=== PATIENT | male | born 1940 | race Caucasian/White ===

== ENCOUNTER 2016-05-08 07:02 | Observation (INO) | payer MEDICARE ==
[~2016-05-08] VITALS: Ht 175.3 cm; Wt 116.6 kg
[~2016-05-08 07:02] MED LIST: AZOR; CITALOPRAM; MECLIZINE
[2016-05-08] MEDS ORDERED: SODIUM CHLORIDE 0.9% 1,000 ML IV ONE (07:32)
[2016-05-08] MEDS ORDERED: MORPHINE SULFATE 4 MG/ML CPJ (NOT FOR IM USE) IV STA (07:32)
[2016-05-08] MEDS ORDERED: ONDANSETRON HCL 4MG/2ML VIAL IV STA (07:32)
[2016-05-08] MEDS ORDERED: FAMOTIDINE 20MG/2ML VIAL IV STA (07:32)
[2016-05-08 07:53] LABS: BASOPHILS % 0.6 % (0.0-2.0); EOSINOPHILS % 5.3 % (0.0-5.0); HEMATOCRIT. 50.4 % (42.0-52.0); LYMPHOCYTES % 19.5 % (20.0-50.0); MEAN CORPUSCULAR HEMOGLOBIN 29.2 pg (28.0-32.0); MEAN CORPUSCULAR HGB CONC 33.8 g/dL (31.0-37.0); MEAN CORPUSCULAR VOLUME 86.3 fL (80.0-94.0); MEAN PLATELET VOLUME 8.5 fl (7.4-10.4); MONOCYTES % 12.2 % (2.0-8.0); NEUTROPHILS % 62.4 % (40.0-76.0); PLATELET 250 x1000/uL (130-400); RED BLOOD CELL COUNT 5.84 mill/uL (4.7-6.1); RED CELL DISTRIBUTION WIDTH 13.6 % (11.6-14.6); WHITE BLOOD COUNT 8.9 x1000/uL (4.5-11.0)
[2016-05-08 08:04] LABS: ALBUMIN 3.3 g/dL (3.4-5.0); ANION GAP 11; CALCIUM 8.8 mg/dL (8.5-10.1); CARBON DIOXIDE 31 mEq/L (21-32); CHLORIDE 100 mEq/L (98-107); INDEX HEMOLYSI 1 (1-3); INDEX ICTERIC 1 (1-4); INDEX LIPEMIC 1 (1-3); LIPASE 213 IU/L (73-393); UREA NITROGEN BLOOD 18 mg/dL (7-21)
[2016-05-08 08:10] LABS: INR 1.5; PROTHROMBIN TIME 16.2 sec
[2016-05-08 08:11] LABS: ALANINE AMINOTRANSFERASE 19 IU/L (13-61); TROPONIN I < 0.02 ng/mL (0.00-0.04); eGFR > 60 mL/min (>60)
[2016-05-08 08:26] LABS: CLARITY URINE CLEAR (CLEAR); COLOR URINE YELLOW (YELLOW); GLUCOSE URINE NEGATIVE (NEGATIVE); KETONES URINE NEGATIVE (NEGATIVE); LEUKOCYTE ESTERASE URINE NEGATIVE (NEGATIVE); NITRITE URINE NEGATIVE (NEGATIVE); OCCULT BLOOD URINE NEGATIVE (NEGATIVE); PROTEIN URINE NEGATIVE (NEGATIVE); SPECIFIC GRAVITY URINE 1.019 (1.005-1.030)
[2016-05-08] MEDS ORDERED: PIPERACILLIN/TAZ 3.375G PREMIX 50 ML IV ONE (09:30)
[2016-05-08] MEDS ORDERED: CLONIDINE 0.1MG TABLET PO PRN (10:15)
[2016-05-08] MEDS ORDERED: ONDANSETRON HCL 4MG/2ML VIAL IV PRN (10:15)
[2016-05-08] MEDS ORDERED: MORPHINE SULFATE 2 MG/ML CPJ (NOT FOR IM USE) IV PRN (10:15)
[2016-05-08] MEDS ORDERED: MORPHINE SULFATE 4 MG/ML CPJ (NOT FOR IM USE) IV PRN (10:15)
[2016-05-08 11:40] VITALS: BP 135/88
[2016-05-08] MEDS ORDERED: RIVA20TA PO (11:47)
[2016-05-08 12:00] VITALS: BP 135/88
[2016-05-08] MEDS ORDERED: DICY20TA11 PO (12:03)
[2016-05-08] MEDS ORDERED: DILT240C3 PO (12:03)
[2016-05-08] MEDS ORDERED: CHLO25TA27 PO (12:03)
[2016-05-08] MEDS ORDERED: IRBE300T18 PO (12:03)
[2016-05-08] MEDS ORDERED: METO-300 PO (12:03)
[2016-05-08] MEDS ORDERED: BRIM5DRO EACHEYE (12:03)
[2016-05-08] MEDS ORDERED: PRED5DRO7 LEFTEYE (12:03)
[2016-05-08] MEDS ORDERED: LANS30CA55 PO (12:03)
[2016-05-08] MEDS ORDERED: DORZ10DR9 RIGHTEYE (12:03)
[2016-05-08] MEDS: DILTIAZEM HCL 240MG ER (24HR) PO SCH (14:10)
[2016-05-08 16:00] VITALS: BP 116/71
[2016-05-08] MEDS ORDERED: RIVAROXABAN 20 MG TABLET PO SCH (17:00)
[2016-05-08] MEDS: SODIUM CHLORIDE 0.9% 1,000 ML IV SCH (17:47)
[2016-05-08] MEDS: ALPHAGAN 0.1% RIGHTEYE SCH (18:34)
[2016-05-08] MEDS: PREDNISOLONE 1% LEFTEYE SCH (18:34)
[2016-05-08] MEDS: DORZOLAMIDE RIGHTEYE SCH (18:35)
[2016-05-08] MEDS: TIMOLOL OPTHALMIC RIGHTEYE SCH (18:35)
[2016-05-08 20:00] VITALS: BP 105/69
[2016-05-08] MEDS ORDERED: PREDNISOLONE ACETATE 1% OPHTH DROPS 1ML LEFTEYE SCH (20:00)
[2016-05-08] MEDS ORDERED: DORZOLAM/TIMOLOL 2.23/0.68% OPHTH DROPS 10ML RIGHTEYE SCH (20:00)
[2016-05-08] MEDS ORDERED: TIMOLOL OPTHALMIC RIGHTEYE SCH (21:00)
[2016-05-08] MEDS ORDERED: DORZOLAMIDE RIGHTEYE SCH (21:00)
[2016-05-08] MEDS: FAMOTIDINE 20MG TABLET PO SCH (21:00)
[2016-05-08] MEDS ORDERED: FAMOTIDINE 20MG/2ML VIAL IV SCH (21:00)
[2016-05-09] VITALS: BP 108/69
[2016-05-09 04:00] VITALS: BP 115/82
[2016-05-09] MEDS: ALPHAGAN 0.1% RIGHTEYE SCH ×2 (06:14→13:30)
[2016-05-09] MEDS: PREDNISOLONE 1% LEFTEYE SCH (06:23)
[2016-05-09] MEDS: TIMOLOL OPTHALMIC RIGHTEYE SCH (06:35)
[2016-05-09] MEDS: DORZOLAMIDE RIGHTEYE SCH (06:35)
[2016-05-09 06:42] LABS: BASOPHILS % 0.8 % (0.0-2.0); EOSINOPHILS % 4.7 % (0.0-5.0); HEMATOCRIT. 47.5 % (42.0-52.0); HEMOGLOBIN. 16.1 g/dL (14.0-18.0); LYMPHOCYTES % 26.6 % (20.0-50.0); MEAN CORPUSCULAR HEMOGLOBIN 29.3 pg (28.0-32.0); MEAN CORPUSCULAR HGB CONC 33.8 g/dL (31.0-37.0); MEAN CORPUSCULAR VOLUME 86.5 fL (80.0-94.0); MEAN PLATELET VOLUME 8.9 fl (7.4-10.4); MONOCYTES % 11.3 % (2.0-8.0); NEUTROPHILS % 56.6 % (40.0-76.0); PLATELET 228 x1000/uL (130-400); RED BLOOD CELL COUNT 5.49 mill/uL (4.7-6.1); RED CELL DISTRIBUTION WIDTH 13.4 % (11.6-14.6); WHITE BLOOD COUNT 8.3 x1000/uL (4.5-11.0)
[2016-05-09 06:44] LABS: CHLORIDE 101 mEq/L (98-107); INDEX HEMOLYSI 2 (1-3); INDEX ICTERIC 1 (1-4); INDEX LIPEMIC 1 (1-3)
[2016-05-09 06:52] LABS: ALANINE AMINOTRANSFERASE 19 IU/L (13-61); ALBUMIN 2.9 g/dL (3.4-5.0); ANION GAP 12; CALCIUM 8.3 mg/dL (8.5-10.1); CARBON DIOXIDE 29 mEq/L (21-32); LIPASE 192 IU/L (73-393); UREA NITROGEN BLOOD 15 mg/dL (7-21); eGFR > 60 mL/min (>60)
[2016-05-09] MEDS: SODIUM CHLORIDE 0.9% 1,000 ML IV SCH (07:03)
[2016-05-09] MEDS: FAMOTIDINE 20MG TABLET PO SCH (07:39)
[2016-05-09 08:00] VITALS: BP 140/99
[2016-05-09] MEDS ORDERED: METOPROLOL TARTRATE 100MG TABLET PO SCH (09:00)
[2016-05-09] MEDS ORDERED: DILTIAZEM HCL 240MG ER (24HR) PO SCH (09:00)
[2016-05-09] MEDS: DILTIAZEM HCL 240MG ER (24HR) PO SCH (09:33)
[2016-05-09 12:00] VITALS: BP 139/89
[2016-05-09] MEDS ORDERED: RIVAROXABAN 20 MG TABLET PO SCH (17:00)
== END 2016-05-09 14:43 | disposition home or self-care (01) ==
LOC: ER 07:17 → INTOOBSV 09:02 → 6EST 09:02
PROVIDERS: ADMIT Internal Medicine Critical Care Medicine; ATTEND Internal Medicine Critical Care Medicine
DX: K80.64 Calculus of gallbladder and bile duct with chronic cholecystitis without obstruction (principal); I10 Essential (primary) hypertension; I48.2 Chronic atrial fibrillation; H40.9 Unspecified glaucoma; H54.8 Legal blindness, as defined in USA; K76.89 Other specified diseases of liver; N28.1 Cyst of kidney, acquired; Z96.1 Presence of intraocular lens; Z98.890 Other specified postprocedural states
CPT/HCPCS: 36415; 71010; 76705; 80053; 81003; 83605; 83690; 84484; 85025; 85610; 93005; 96361; 96365; 96375; 99285; G0378; J2270; J2405; J2543; J3490; J7030

== ENCOUNTER 2017-09-21 05:03 | Emergency (ER) | payer MEDICARE, OTHER ==
[~2017-09-21] VITALS: Ht 175.3 cm; Wt 116.0 kg
[~2017-09-21 05:03] MED LIST changes: -AZOR; +BRIM5DRO EACHEYE; -CITALOPRAM; +DILT240C3 PO; +DORZ10DR9 RIGHTEYE; +LANS30CA55 PO; -MECLIZINE; +METO-411 PO; +PRED5DRO7 LEFTEYE; +RIVA20TA PO
[2017-09-21] MEDS ORDERED: SODIUM CHLORIDE 0.9% 1,000 ML IV ONE (06:39)
[2017-09-21] MEDS ORDERED: KETOROLAC 30MG/ML VIAL IV STA (06:39)
[2017-09-21] MEDS ORDERED: MAGNESIUM/ALUMINUM HYDROXIDE/SIMETHICONE 30ML UDC PO STA (06:39)
[2017-09-21 08:01] LABS: BASOPHILS % 0.4 % (0.0-2.0); EOSINOPHILS % 5.5 % (0.0-5.0); HEMOGLOBIN. 15.8 g/dL (14.0-18.0); LYMPHOCYTES % 18.7 % (20.0-50.0); MEAN CORPUSCULAR HEMOGLOBIN 29.2 pg (28.0-32.0); MEAN CORPUSCULAR VOLUME 84.9 fL (80.0-94.0); MEAN PLATELET VOLUME 8.4 fl (7.4-10.4); MONOCYTES % 11.4 % (2.0-8.0); PLATELET 254 x1000/uL (130-400); RED BLOOD CELL COUNT 5.42 mill/uL (4.7-6.1)
[2017-09-21 08:05] LABS: CHLORIDE 101 mEq/L (98-107)
[2017-09-21 08:58] VITALS: BP 124/79
== END 2017-09-21 08:59 | disposition home or self-care (01) ==
LOC: ER 05:03
DX: R10.12 Left upper quadrant pain (principal); I10 Essential (primary) hypertension; K57.90 Diverticulosis of intestine, part unspecified, without perforation or abscess without bleeding; I48.91 Unspecified atrial fibrillation; Z88.8 Allergy status to other drugs, medicaments and biological substances; Z79.899 Other long term (current) drug therapy
CPT/HCPCS: 36415; 74176; 80053; 83690; 84484; 85025; 93005; 96374; 99285; J1885; J7030

== ENCOUNTER 2018-04-02 12:52 | Emergency (ER) | payer OTHER ==
[~2018-04-02] VITALS: Ht 175.3 cm; Wt 118.0 kg
[2018-04-02] MEDS ORDERED: MAGNESIUM/ALUMINUM HYDROXIDE/SIMETHICONE 30ML UDC PO STA (23:19)
[2018-04-03 00:09] LABS: BASOPHILS % 0.6 % (0.0-2.0); EOSINOPHILS % 5.7 % (0.0-5.0); HEMATOCRIT. 49.3 % (42.0-52.0); LYMPHOCYTES % 23.3 % (20.0-50.0); MEAN CORPUSCULAR HEMOGLOBIN 30.1 pg (28.0-32.0); MEAN CORPUSCULAR VOLUME 87.6 fL (80.0-94.0); MEAN PLATELET VOLUME 8.5 fl (7.4-10.4); MONOCYTES % 11.3 % (2.0-8.0); NEUTROPHILS % 59.1 % (40.0-76.0); PLATELET 243 x1000/uL (130-400); RED BLOOD CELL COUNT 5.64 mill/uL (4.7-6.1); RED CELL DISTRIBUTION WIDTH 13.6 % (11.6-14.6)
[2018-04-03 00:15] LABS: CHLORIDE 102 mEq/L (98-107)
[2018-04-03 01:38] LABS: CLARITY URINE CLEAR (CLEAR); COLOR URINE YELLOW (YELLOW); KETONES URINE NEGATIVE (NEGATIVE); LEUKOCYTE ESTERASE URINE NEGATIVE (NEGATIVE); NITRITE URINE NEGATIVE (NEGATIVE); OCCULT BLOOD URINE NEGATIVE (NEGATIVE); PROTEIN URINE NEGATIVE (NEGATIVE); SPECIFIC GRAVITY URINE 1.022 (1.005-1.030); UROBILINOGEN URINE 0.2 E.U./dL (0.2-1.0)
[2018-04-03 02:16] VITALS: BP 125/80
== END 2018-04-03 02:18 | disposition home or self-care (01) ==
LOC: ER 12:52
DX: I10 Essential (primary) hypertension (principal); R10.9 Unspecified abdominal pain; H40.9 Unspecified glaucoma; H54.62 Unqualified visual loss, left eye, normal vision right eye; Z90.49 Acquired absence of other specified parts of digestive tract
CPT/HCPCS: 36415; 99283

== ENCOUNTER 2018-05-04 12:31 | Emergency (ER) | payer OTHER ==
[~2018-05-04] VITALS: Ht 175.3 cm; Wt 100.0 kg
[2018-05-04] MEDS ORDERED: SODIUM CHLORIDE 0.9% 1,000 ML IV ONE (14:26)
[2018-05-04] MEDS ORDERED: PANTOPRAZOLE SODIUM 40 MG/VIAL IV ONE (14:30)
[2018-05-04 14:37] LABS: BASOPHILS % 0.4 % (0.0-2.0); EOSINOPHILS % 3.9 % (0.0-5.0); HEMATOCRIT. 51.7 % (42.0-52.0); HEMOGLOBIN. 17.6 g/dL (14.0-18.0); LYMPHOCYTES % 20.5 % (20.0-50.0); MEAN CORPUSCULAR HEMOGLOBIN 29.8 pg (28.0-32.0); MEAN CORPUSCULAR VOLUME 87.6 fL (80.0-94.0); MEAN PLATELET VOLUME 8.5 fl (7.4-10.4); MONOCYTES % 10.2 % (2.0-8.0); PLATELET 274 x1000/uL (130-400); RED BLOOD CELL COUNT 5.91 mill/uL (4.7-6.1); RED CELL DISTRIBUTION WIDTH 13.5 % (11.6-14.6)
[2018-05-04 14:40] LABS: CHLORIDE 98 mEq/L (98-107)
[2018-05-04 14:42] LABS: INR 1.3; PROTHROMBIN TIME 12.6 sec (9.1-11.1)
[2018-05-04 17:04] LABS: CLARITY URINE CLEAR (CLEAR); COLOR URINE YELLOW (YELLOW); KETONES URINE NEGATIVE (NEGATIVE); LEUKOCYTE ESTERASE URINE NEGATIVE (NEGATIVE); NITRITE URINE NEGATIVE (NEGATIVE); OCCULT BLOOD URINE NEGATIVE (NEGATIVE); PROTEIN URINE NEGATIVE (NEGATIVE); SPECIFIC GRAVITY URINE 1.007 (1.005-1.030); UROBILINOGEN URINE 0.2 E.U./dL (0.2-1.0)
[2018-05-04 18:28] VITALS: BP 117/71
== END 2018-05-04 18:36 | disposition home or self-care (01) ==
LOC: ER 12:31
DX: R10.13 Epigastric pain (principal); R42 Dizziness and giddiness; I48.91 Unspecified atrial fibrillation; I10 Essential (primary) hypertension; Z90.49 Acquired absence of other specified parts of digestive tract; Z79.899 Other long term (current) drug therapy; Z88.8 Allergy status to other drugs, medicaments and biological substances
CPT/HCPCS: 36415; 71045; 74176; 80053; 81003; 83690; 83880; 84484; 85025; 85610; 85730; 93005; 96361; 96374; 99284; C9113; J7030

== ENCOUNTER 2020-07-29 04:34 | Emergency (ER) | payer OTHER ==
[~2020-07-29] VITALS: Ht 175.3 cm; Wt 114.0 kg
[~2020-07-29 04:34] MED LIST changes: -DILT240C3 PO; +DILT240C94 PO
[2020-07-29] MEDS: SODIUM CHLORIDE 0.9% 1,000 ML IV ONE (05:16)
[2020-07-29] MEDS: KETOROLAC 30MG/ML VIAL IV STA (05:16)
[2020-07-29 05:30] LABS: CLARITY URINE CLEAR (CLEAR); COLOR URINE DARK YELLOW (YELLOW); KETONES URINE NEGATIVE (NEGATIVE); LEUKOCYTE ESTERASE URINE NEGATIVE (NEGATIVE); NITRITE URINE POSITIVE (NEGATIVE); OCCULT BLOOD URINE NEGATIVE (NEGATIVE); PH URINE 5.5 (4.5-8.0); PROTEIN URINE NEGATIVE (NEGATIVE); SPECIFIC GRAVITY URINE 1.007 (1.005-1.030)
[2020-07-29 05:30] LABS: BASOPHILS % 0.3 % (0.0-2.0); EOSINOPHILS % 4.1 % (0.0-5.0); HEMATOCRIT. 50.4 % (42.0-52.0); HEMOGLOBIN. 17.3 g/dL (14.0-18.0); LYMPHOCYTES % 11.7 % (20.0-50.0); MEAN CORPUSCULAR HEMOGLOBIN 29.7 pg (28.0-32.0); MEAN CORPUSCULAR VOLUME 86.3 fL (80.0-94.0); MEAN PLATELET VOLUME 8.4 fl (7.4-10.4); MONOCYTES % 10.8 % (2.0-8.0); NEUTROPHILS % 73.1 % (40.0-76.0); PLATELET 240 x1000/uL (130-400); RED BLOOD CELL COUNT 5.84 mill/uL (4.7-6.1); RED CELL DISTRIBUTION WIDTH 13.6 % (11.6-14.6)
[2020-07-29 05:37] LABS: CHLORIDE 101 mEq/L (98-107)
[2020-07-29] MEDS ORDERED: IBUP-2028 MT (06:09)
[2020-07-29] MEDS ORDERED: IOHEXOL-300 100 ML BOTTLE ONE (06:21)
[2020-07-29 06:30] VITALS: BP 164/111
== END 2020-07-29 07:09 | disposition home or self-care (01) ==
LOC: ER 04:34
DX: M54.5 Low back pain (principal); I10 Essential (primary) hypertension; Z88.8 Allergy status to other drugs, medicaments and biological substances; Z90.49 Acquired absence of other specified parts of digestive tract
CPT/HCPCS: 36415; 71045; 74177; 80053; 81003; 85025; 93005; 96361; 96374; 99285; J1885; J7030; Q9967

== ENCOUNTER 2024-08-23 18:10 | Emergency (ER) | payer OTHER ==
[~2024-08-23] VITALS: Ht 172.7 cm; Wt 100.0 kg
[~2024-08-23 18:10] MED LIST changes: +IBUP-2028 MT
[2024-08-23 18:12] VITALS: O2SAT 96
[2024-08-23] MEDS ORDERED: FAMOTIDINE 20MG/2ML VIAL IV STA (18:13)
[2024-08-23] MEDS ORDERED: METOCLOPRAMIDE HCL 10MG/2ML VIAL IV STA (18:13)
[2024-08-23] MEDS ORDERED: KETOROLAC 30MG/ML VIAL IV STA (18:13)
[2024-08-23] MEDS ORDERED: SODIUM CHLORIDE 0.9% 1,000 ML IV ONE (18:15)
[2024-08-23 18:48] LABS: BASOPHILS % 0.5 % (0.0-2.0); EOSINOPHILS % 8.0 % (0.0-5.0); HEMATOCRIT. 36.7 % (42.0-52.0); HEMOGLOBIN. 12.5 g/dL (14.0-18.0); LYMPHOCYTES % 18.1 % (20.0-50.0); MEAN PLATELET VOLUME 7.8 fl (7.4-10.4); MONOCYTES % 10.3 % (2.0-8.0); NEUTROPHILS % 63.1 % (40.0-76.0); PLATELET 192 x1000/uL (130-400); RED BLOOD CELL COUNT 4.34 mill/uL (4.7-6.1); RED CELL DISTRIBUTION WIDTH 14.6 % (11.6-14.6)
[2024-08-23 19:00] LABS: INR 1.3
[2024-08-23 19:02] LABS: CREATININE 0.9 mg/dL (0.6-1.3); TROPONIN I HIGH SENSITIVITY < 4 ng/L (3.0-53); UREA NITROGEN BLOOD 12 mg/dL (9-23)
[2024-08-23 19:03] LABS: ETHANOL BLOOD < 10 mg/dL (<10)
[2024-08-23 19:04] LABS: ASPARTATE AMINOTRANSFERASE 17 IU/L (<34); BILIRUBIN DIRECT 0.7 mg/dL (<=3.0); BILIRUBIN TOTAL 1.4 mg/dL (0.1-1.0); PROTEIN TOTAL 7.7 g/dL (6.0-8.3)
[2024-08-23 20:58] LABS: CLARITY URINE CLEAR (CLEAR); COLOR URINE YELLOW (YELLOW); GLUCOSE URINE NEGATIVE (NEGATIVE); KETONES URINE NEGATIVE (NEGATIVE); LEUKOCYTE ESTERASE URINE NEGATIVE (NEGATIVE); NITRITE URINE NEGATIVE (NEGATIVE); OCCULT BLOOD URINE NEGATIVE (NEGATIVE); PH URINE 6.0 (4.5-8.0); PROTEIN URINE 1+ (NEGATIVE); SPECIFIC GRAVITY URINE 1.016 (1.005-1.030); UROBILINOGEN URINE 1.0 E.U./dL (0.2-1.0)
[2024-08-23] MEDS ORDERED: KETOROLAC 30MG/ML VIAL IV SCH (21:00)
[2024-08-23] MEDS ORDERED: METOCLOPRAMIDE HCL 10MG/2ML VIAL IV SCH (21:00)
[2024-08-23] MEDS ORDERED: FAMOTIDINE 20MG/2ML VIAL IV SCH (21:00)
[2024-08-23] MEDS: MAGNESIUM/ALUMINUM HYDROXIDE/SIMETHICONE 30ML UDC PO SCH (21:13)
[2024-08-23] MEDS: FAMOTIDINE 20MG TABLET PO SCH (21:13)
[2024-08-23] MEDS: ONDANSETRON 4MG ODT PO SCH (21:13)
[2024-08-23 21:22] LABS: BACTERIA URINE NONE SEEN; RBC URINE NONE SEEN /hpf (0-2); SQUAMOUS EPITHELIAL CELL URINE NONE SEEN /lpf (RARE/1+); WBC URINE 0-2 /hpf (0-2)
[2024-08-23 22:20] VITALS: BP 125/81; PULSE 85; RESP 13; TEMP 36.5; O2SAT 95
== END 2024-08-23 22:25 | disposition home or self-care (01) ==
LOC: ER 18:10
DX: K80.20 Calculus of gallbladder without cholecystitis without obstruction (principal); I10 Essential (primary) hypertension; I48.91 Unspecified atrial fibrillation; I27.20 Pulmonary hypertension, unspecified; H40.9 Unspecified glaucoma; E78.5 Hyperlipidemia, unspecified; Z90.49 Acquired absence of other specified parts of digestive tract; Z79.899 Other long term (current) drug therapy; Z79.01 Long term (current) use of anticoagulants
CPT/HCPCS: 80076; 80048; 81003; 80320; 83690; 85025; 85610; 84484; 36415; 76705; 99284; Q0162; J7030; J1308; J1885; J2765; G0480